=== PATIENT | female | born 1965 | race Two or more races ===

== ENCOUNTER 2019-08-06 22:38 | Emergency (ER) | payer OTHER ==
[~2019-08-06] VITALS: Ht 149.9 cm; Wt 75.2 kg
--- NOTE | 2019-08-06 23:05 | NUR ---
ERP AT BEDSIDE FOR EVAL.
[2019-08-06] MEDS ORDERED: ONDANSETRON 2MG/ML, 2ML ONE (23:14)
[2019-08-06] MEDS ORDERED: MORPHINE SULFATE 4 MG/ML, 1ML ONE (23:14)
[2019-08-06] MEDS ORDERED: KETOROLAC 30 MG/1 ML ONE (23:14)
--- NOTE | 2019-08-06 23:18 | NUR ---
PT TO BATHROOM FOR URINE SAMPLE.
[2019-08-06] MEDS: MORPHINE SULFATE 4 MG/ML, 1ML IVPush PRN (23:28)
[2019-08-06] MEDS ORDERED: KETOROLAC 30 MG/1 ML IVPush ONE (23:30)
[2019-08-06] MEDS ORDERED: ONDANSETRON 2MG/ML, 2ML IVPush ONE (23:30)
--- NOTE | 2019-08-06 23:53 | NUR ---
INSTRUMENTATION FITTER AT BEDSIDE.
[2019-08-06 23:56] LABS: BASOPHILS # (AUTO) 0.06 x10^3/uL (0-0.1); BASOPHILS % (AUTO) 0 % (0-1); EOSINOPHILS # (AUTO) 0.19 x10^3/uL (0-0.4); EOSINOPHILS % (AUTO) 2 % (1-7); LYMPHOCYTES # (AUTO) 2.25 x10^3/uL (1-3.4); LYMPHOCYTES % (AUTO) 18 % (22-44); MD NO; MEAN CORPUSCULAR HEMOGLOBIN 31.5 pg (27.0-34.8); MEAN CORPUSCULAR HGB CONC 33.4 g/dL (32.4-35.8); MEAN CORPUSCULAR VOLUME 94.4 fL (80-100); MEAN PLATELET VOLUME 8.3 fL (7.4-10.4); MONOCYTES # (AUTO) 0.83 x10^3/uL (0.2-0.8); MONOCYTES % (AUTO) 7 % (2-9); NEUTROPHILS % (AUTO) 74 % (42-75); PLATELET COUNT 346 x10^3/uL (130-400); RED BLOOD COUNT 4.39 x10^6/uL (3.82-5.3)
[2019-08-07] LABS: MICROSCOPIC AUTO
[2019-08-07 00:02] LABS: CULTURE INDICATED? YES
[2019-08-07 00:09] LABS: ALBUMIN 3.7 g/dL (3.4-5.0); ANION GAP 8 mmol/L (5-15); CALCIUM 9.2 mg/dL (8.5-10.1); CHLORIDE 106 mmol/L (98-107); CREATININE 0.72 mg/dL (0.55-1.02)
--- NOTE | 2019-08-07 00:23 | NUR ---
RESTING ON GURNEY, DENIES PAIN AT THIS TIME.
--- NOTE | 2019-08-07 01:13 | NUR ---
PT IN CT.
--- NOTE | 2019-08-07 02:11 | NUR ---
RESTING IN [facility], EVEN UNLABORED RESPIRATIONS.
[2019-08-07] MEDS ORDERED: MORPHINE SULFATE 4 MG/ML, 1ML ONE (03:10)
[2019-08-07] MEDS: MORPHINE SULFATE 4 MG/ML, 1ML IVPush PRN (03:16)
[2019-08-07 03:19] VITALS: BP 154/77
== END 2019-08-07 03:32 | disposition home or self-care (01) ==
LOC: ED 08-07 03:14
DX: N13.2 Hydronephrosis with renal and ureteral calculous obstruction (principal); R31.9 Hematuria, unspecified; R11.2 Nausea with vomiting, unspecified; R10.9 Unspecified abdominal pain
CPT/HCPCS: 36415; 74176; 76770; 80048; 81001; 82040; 85025; 87086; 87147; 96374; 96375; 96376; 99285; J1885; J2270; J2405

== ENCOUNTER → 2019-08-12 | Outpatient (CLI) | payer OTHER | END | disposition home or self-care (01) | LOC: RAD 10:43 | PROVIDERS: ATTEND Urology | DX: N20.0 Calculus of kidney (principal) | CPT/HCPCS: 74018 ==

== ENCOUNTER 2019-08-15 10:31 | Day surgery (SDC) | payer OTHER ==
[~2019-08-15] VITALS: Ht 149.9 cm; Wt 77.4 kg
[2019-08-15 10:53] VITALS: BP 146/87
[2019-08-15] MEDS ORDERED: CHLORHEXIDINE 15 ML UDC ONE (11:08)
[2019-08-15] MEDS ORDERED: TAMS-11 PO (11:18)
[2019-08-15] MEDS ORDERED: ZOFRAN ODT PO (11:18)
[2019-08-15] MEDS ORDERED: HYDR-3237 PO (11:18)
[2019-08-15] MEDS ORDERED: LACTATED RINGERS 1,000 ML IV SCH (11:18)
[2019-08-15] MEDS ORDERED: ONDA4TAB7 PO (11:18)
[2019-08-15] MEDS ORDERED: CHLORHEXIDINE 15 ML UDC MM ONE (11:30)
[2019-08-15] MEDS ORDERED: LIDOCAINE-MPF 1%, 2ML INFIL ONE (11:30)
[2019-08-15] MEDS ORDERED: MIDAZOLAM 1 MG/ML, 2ML ONE (12:10)
[2019-08-15] MEDS ORDERED: FENTANYL PF 250 MCG/5ML ONE (12:10)
[2019-08-15] MEDS ORDERED: GLYCOPYRROLATE 0.2MG/1ML, 5ML ONE (12:49)
[2019-08-15] MEDS ORDERED: NEOSTIGMINE 1 MG/ML, 10ML ONE (12:49)
[2019-08-15] MEDS ORDERED: DEXAMETHASONE 4 MG/ML, 1ML ONE ×2 (12:58)
[2019-08-15] MEDS ORDERED: CEFAZOLIN 1,000 MG ONE ×2 (12:59)
[2019-08-15] MEDS ORDERED: OMNIPAQUE 350 MG/ML, 50 ML BOTTLE IV ONE (13:03)
[2019-08-15] MEDS ORDERED: PROPOFOL 10 MG/ML, 20ML ONE (13:14)
[2019-08-15] MEDS ORDERED: KETOROLAC 30 MG/1 ML ONE (13:14)
[2019-08-15] MEDS ORDERED: LIDOCAINE 2%,20 ML JEL.PF.APP MM ONE (13:15)
[2019-08-15] MEDS ORDERED: ONDANSETRON 2MG/ML, 2ML ONE (13:27)
[2019-08-15] MEDS ORDERED: HYDROmorphone 1 MG/ML, 1ML INJ IVPush PRN (13:30)
[2019-08-15] MEDS ORDERED: OXYcodone 5 MG/5 ML ORAL.SOL UDC PO PRN (13:30)
[2019-08-15] MEDS ORDERED: FENTANYL PF 100 MCG/2ML IV PRN (13:30)
[2019-08-15] MEDS ORDERED: PROMETHAZINE 12.5 MG SUPP PR PRN (13:30)
[2019-08-15] MEDS ORDERED: ONDANSETRON 2MG/ML, 2ML IVPush PRN (13:30)
[2019-08-15] MEDS ORDERED: ACETAMINOPHEN 325 MG TABLET PO PRN (13:30)
[2019-08-15] MEDS ORDERED: MEPERIDINE/PF 25MG/0.5ML IVPush PRN (13:30)
[2019-08-15] MEDS ORDERED: hydrALAzine 20 MG/ML, 1ML IV PRN (13:30)
[2019-08-15] MEDS ORDERED: LABETALOL 5MG/ML, 20ML IV PRN (13:30)
[2019-08-15] MEDS ORDERED: OMNIPAQUE 350 MG/ML, 50 ML BOTTLE ONE (13:40)
[2019-08-15] MEDS ORDERED: PHENAZOPYRIDINE 200 MG TABLET ONE (13:51)
[2019-08-15] MEDS ORDERED: PHENAZOPYRIDINE 200 MG TABLET PO ONE (14:00)
[2019-08-15] MEDS ORDERED: HYDROcodone/APAP 7.5-325MG/15ML UDC ONE (14:07)
[2019-08-15] MEDS ORDERED: HYDROcodone/APAP 7.5-325MG/15ML UDC PO ONE (14:30)
== END 2019-08-15 17:00 | disposition home or self-care (01) ==
LOC: OUT 10:31
PROVIDERS: ATTEND Urology
DX: N20.1 Calculus of ureter (principal); Z79.891 Long term (current) use of opiate analgesic; Z79.899 Other long term (current) drug therapy; Z88.5 Allergy status to narcotic agent; Z87.442 Personal history of urinary calculi
CPT/HCPCS: 52356; 74420; C1758; C1769; C2617; J0690; J1100; J1885; J2250; J2405; J2704; J2710; J3010; J7120; Q9967

== ENCOUNTER → 2019-10-15 | Outpatient (CLI) | payer BC, OTHER ==
[~2019-10-15] MED LIST: HYDR-3237 PO; ONDA4TAB7 PO; TAMS-11 PO; ZOFRAN ODT PO
== END | disposition home or self-care (01) ==
LOC: CFH 13:36
PROVIDERS: ATTEND Physician Assistant
DX: N20.0 Calculus of kidney (principal)
CPT/HCPCS: 76770

== ENCOUNTER 2019-10-29 18:13 | Inpatient (IN) | payer BC ==
[~2019-10-29] VITALS: Ht 149.9 cm; Wt 74.7 kg
--- NOTE | 2019-10-29 18:35 | NUR ---
PT AMB TO BR WITH STEADY GAIT.
--- NOTE | 2019-10-29 18:50 | NUR ---
URINE COLLECTED AND UA SENT.
--- NOTE | 2019-10-29 18:50 | NUR ---
FIRST CONTACT WITH PT. PT C/O LEFT FLANK PAIN X6 DAYS WITH URINALY FREQUENCY. HAS HX KIDNEY STONES AND LITHOTRIPSY, TAKES FLOMAX. PAIN WORSEN TODAY. PT'S AOX4. RESPS EVEN AND UNLABORED. BP/SPO2 MONITORS IN PLACE. CALL LIGHT WITHIN REACH. EDMD AT BEDSIDE TO EVALUATE AT THIS TIME.
--- NOTE | 2019-10-29 18:52 | NUR ---
REPORT GIVEN TO WILFREDO ARVIZU.
[2019-10-29] MEDS ORDERED: KETOROLAC 30 MG/1 ML IM ONE (19:00)
--- NOTE | 2019-10-29 19:05 | NUR ---
PT BACK FROM CT, MEDICATED PER MAY, PT REPORTS LEFT SIDED ABDOMINAL PAIN RADIATING INTO BACK, PROVIDED WITH WARM BLANKETS, VSS, NAD NOTED, SPOUSE AT BEDSIDE, NO FURTHER REQUESTS AT THIS TIME
[2019-10-29 19:08] LABS: MICROSCOPIC AUTO
[2019-10-29] MEDS ORDERED: ONDANSETRON 2MG/ML, 2ML ONE (20:17)
[2019-10-29] MEDS ORDERED: ONDANSETRON 2MG/ML, 2ML IVPush ONE (20:30)
[2019-10-29] MEDS ORDERED: MORPHINE SULFATE 4 MG/ML, 1ML IVPush PRN (20:30)
[2019-10-29 20:31] LABS: BASOPHILS # (AUTO) 0.05 x10^3/uL (0-0.1); BASOPHILS % (AUTO) 1 % (0-1); EOSINOPHILS # (AUTO) 0.26 x10^3/uL (0-0.4); EOSINOPHILS % (AUTO) 3 % (1-7); LYMPHOCYTES % (AUTO) 38 % (22-44); MD NO; MEAN CORPUSCULAR HEMOGLOBIN 31.6 pg (27.0-34.8); MEAN CORPUSCULAR HGB CONC 32.8 g/dL (32.4-35.8); MEAN CORPUSCULAR VOLUME 96.3 fL (80-100); MEAN PLATELET VOLUME 7.9 fL (7.4-10.4); MONOCYTES # (AUTO) 0.57 x10^3/uL (0.2-0.8); MONOCYTES % (AUTO) 6 % (2-9); NEUTROPHILS # (AUTO) 4.78 x10^3/uL (1.8-6.8); NEUTROPHILS % (AUTO) 53 % (42-75); PLATELET COUNT 306 x10^3/uL (130-400); RED BLOOD COUNT 4.29 x10^6/uL (3.82-5.3); RED CELL DISTRIBUTION WIDTH 13.7 % (9.6-15.2)
[2019-10-29 20:42] LABS: ALBUMIN 3.6 g/dL (3.4-5.0); ANION GAP 7 mmol/L (5-15); CALCIUM 8.4 mg/dL (8.5-10.1); CHLORIDE 111 mmol/L (98-107); CREATININE 0.54 mg/dL (0.55-1.02)
--- NOTE | 2019-10-29 21:41 | NUR ---
REPORT TO NOLBERTO CARLOS. FLOOR READY FOR PT. TRANSPORT.
[2019-10-29] MEDS ORDERED: ONDANSETRON 2MG/ML, 2ML IVPush PRN (22:30)
[2019-10-29] MEDS ORDERED: BISACODYL 10 MG SUPP PR PRN (22:30)
[2019-10-29] MEDS ORDERED: morphine SULFATE 10 MG/ML, 1ML IVPush PRN (22:30)
[2019-10-29] MEDS: CEFTRIAXONE PMX 1GM/50ML 50 ML IV SCH (22:54)
[2019-10-29] MEDS: POTASSIUM CHLORIDE 20 MEQ in SODIUM CHLORIDE 0.45% 1,000 ML IV SCH (22:54)
[2019-10-29 23:02] VITALS: BP 159/90
[2019-10-30 01:49] VITALS: BP 114/69
[2019-10-30 05:43] LABS: CALCIUM 8.2 mg/dL (8.5-10.1); CHLORIDE 110 mmol/L (98-107)
[2019-10-30 05:46] LABS: ANION GAP 6 mmol/L (5-15); CREATININE 0.57 mg/dL (0.55-1.02)
[2019-10-30 06:52] VITALS: BP 136/95
[2019-10-30] MEDS: KETOROLAC 30 MG/1 ML IV PRN (07:57)
[2019-10-30] MEDS: POTASSIUM CHLORIDE 20 MEQ in SODIUM CHLORIDE 0.45% 1,000 ML IV SCH ×2 (07:57→22:17)
[2019-10-30] MEDS ORDERED: CHLORHEXIDINE 15 ML UDC MM ONE (12:30)
[2019-10-30] MEDS ORDERED: MIDAZOLAM 1 MG/ML, 2ML ONE (12:46)
[2019-10-30] MEDS ORDERED: FENTANYL PF 100 MCG/2ML ONE (12:50)
[2019-10-30] MEDS ORDERED: LABETALOL 5MG/ML, 20ML IV PRN (13:00)
[2019-10-30] MEDS ORDERED: HYDROmorphone 1 MG/ML, 1ML INJ IVPush PRN (13:00)
[2019-10-30] MEDS ORDERED: PROMETHAZINE 25 MG/ML, 1ML IVPush PRN (13:00)
[2019-10-30] MEDS ORDERED: hydrALAzine 20 MG/ML, 1ML IV PRN (13:00)
[2019-10-30] MEDS ORDERED: FENTANYL PF 100 MCG/2ML IV PRN (13:00)
[2019-10-30] MEDS ORDERED: OXYcodone 5 MG/5 ML ORAL.SOL UDC PO PRN (13:00)
[2019-10-30] MEDS ORDERED: DIPHENHYDRAMINE 50 MG/ML, 1ML IVPush PRN (13:00)
[2019-10-30] MEDS ORDERED: HALOPERIDOL 5 MG/ML IV PRN (13:00)
[2019-10-30] MEDS ORDERED: MEPERIDINE/PF 25MG/0.5ML IVPush PRN (13:00)
[2019-10-30] MEDS ORDERED: DEXAMETHASONE 4 MG/ML, 1ML ONE (13:45)
[2019-10-30] MEDS ORDERED: PROPOFOL 10 MG/ML, 20ML ONE (13:45)
[2019-10-30] MEDS ORDERED: ONDANSETRON 2MG/ML, 2ML ONE (13:45)
[2019-10-30] MEDS ORDERED: CEFAZOLIN 1,000 MG ONE (13:45)
[2019-10-30] MEDS ORDERED: ACETAMINOPHEN 650 MG/20.3 ML UDC ONE (14:14)
[2019-10-30] MEDS: ACETAMINOPHEN 325 MG TABLET PO PRN ×2 (14:16→18:26)
[2019-10-30 19:14] VITALS: BP 147/79
[2019-10-30] MEDS: CEFTRIAXONE PMX 1GM/50ML 50 ML IV SCH (22:17)
[2019-10-30 23:45] VITALS: BP 127/78
[2019-10-31] MEDS: KETOROLAC 30 MG/1 ML IV PRN ×2 (02:52→09:39)
[2019-10-31 03:32] VITALS: BP 121/77
[2019-10-31 05:54] LABS: BASOPHILS # (AUTO) 0.03 x10^3/uL (0-0.1); BASOPHILS % (AUTO) 0 % (0-1); EOSINOPHILS # (AUTO) 0.01 x10^3/uL (0-0.4); EOSINOPHILS % (AUTO) 0 % (1-7); LYMPHOCYTES # (AUTO) 1.86 x10^3/uL (1-3.4); LYMPHOCYTES % (AUTO) 15 % (22-44); MD NO; MEAN CORPUSCULAR HEMOGLOBIN 32.1 pg (27.0-34.8); MEAN CORPUSCULAR HGB CONC 33.6 g/dL (32.4-35.8); MEAN CORPUSCULAR VOLUME 95.5 fL (80-100); MEAN PLATELET VOLUME 8.2 fL (7.4-10.4); MONOCYTES # (AUTO) 0.67 x10^3/uL (0.2-0.8); MONOCYTES % (AUTO) 5 % (2-9); NEUTROPHILS # (AUTO) 9.81 x10^3/uL (1.8-6.8); NEUTROPHILS % (AUTO) 79 % (42-75); PLATELET COUNT 298 x10^3/uL (130-400); RED BLOOD COUNT 4.11 x10^6/uL (3.82-5.3); RED CELL DISTRIBUTION WIDTH 13.9 % (9.6-15.2)
[2019-10-31 05:55] LABS: ANION GAP 7 mmol/L (5-15); CALCIUM 8.5 mg/dL (8.5-10.1); CHLORIDE 110 mmol/L (98-107); CREATININE 0.63 mg/dL (0.55-1.02)
[2019-10-31 06:19] VITALS: BP 121/76
[2019-10-31] MEDS: POTASSIUM CHLORIDE 20 MEQ in SODIUM CHLORIDE 0.45% 1,000 ML IV SCH (10:07)
[2019-10-31 12:44] LABS: MICROSCOPIC INDICATED
[2019-10-31 14:48] VITALS: BP 118/74
[2019-10-31] MEDS ORDERED: PHEN100T90 PO (15:46)
[2019-10-31 17:47] VITALS: BP 126/77
== END 2019-10-31 17:55 | disposition home or self-care (01) | DRG 661 ==
LOC: ED 21:22 → EDIP 21:38 → 4NE 22:25
PROVIDERS: ADMIT Internal Medicine; ATTEND Internal Medicine
PROC: 0T778DZ Dilation of Left Ureter with Intraluminal Device, Via Natural or Artificial Opening Endoscopic (ICD-10-PCS; 2019-10-30)
PROC: BT1F1ZZ Fluoroscopy of Left Kidney, Ureter and Bladder using Low Osmolar Contrast (ICD-10-PCS; 2019-10-30)
PROC: 0TC78ZZ Extirpation of Matter from Left Ureter, Via Natural or Artificial Opening Endoscopic (ICD-10-PCS; principal; 2019-10-30 12:30)
DX: N13.6 Pyonephrosis (principal); E87.6 Hypokalemia; Z87.442 Personal history of urinary calculi
CPT/HCPCS: 36415; 74176; 74420; 80048; 81001; 82040; 82360; 85025; 87086; 87635; 88300; G0378; J0690; J0696; J1100; J1885; J2250; J2405; J2704; J3010; J3480; C2617

== ENCOUNTER 2019-11-04 22:53 | Emergency (ER) | payer BC ==
[~2019-11-04] VITALS: Ht 149.9 cm; Wt 75.1 kg
[~2019-11-04 22:53] MED LIST changes: +PHEN100T90 PO
[2019-11-05] MEDS ORDERED: ONDANSETRON 2MG/ML, 2ML IVPush ONE
[2019-11-05] MEDS ORDERED: KETOROLAC 30 MG/1 ML IVPush ONE
[2019-11-05] MEDS ORDERED: KETOROLAC 30 MG/1 ML ONE (00:08)
--- NOTE | 2019-11-05 00:25 | NUR ---
PT TO IMAGING.
[2019-11-05 00:30] LABS: BASOPHILS # (AUTO) 0.06 x10^3/uL (0-0.1); BASOPHILS % (AUTO) 0 % (0-1); EOSINOPHILS # (AUTO) 0.21 x10^3/uL (0-0.4); EOSINOPHILS % (AUTO) 2 % (1-7); LYMPHOCYTES % (AUTO) 16 % (22-44); MD NO; MEAN CORPUSCULAR HEMOGLOBIN 31.6 pg (27.0-34.8); MEAN CORPUSCULAR HGB CONC 33.2 g/dL (32.4-35.8); MEAN CORPUSCULAR VOLUME 95.1 fL (80-100); MEAN PLATELET VOLUME 8.1 fL (7.4-10.4); MONOCYTES # (AUTO) 0.85 x10^3/uL (0.2-0.8); MONOCYTES % (AUTO) 6 % (2-9); NEUTROPHILS # (AUTO) 10.65 x10^3/uL (1.8-6.8); NEUTROPHILS % (AUTO) 76 % (42-75); PLATELET COUNT 345 x10^3/uL (130-400); RED BLOOD COUNT 4.33 x10^6/uL (3.82-5.3)
[2019-11-05 00:39] LABS: MICROSCOPIC INDICATED
[2019-11-05 00:44] LABS: ALANINE AMINOTRANSFERASE 22 U/L (12-78); ALBUMIN 3.5 g/dL (3.4-5.0); ANION GAP 7 mmol/L (5-15); CALCIUM 8.8 mg/dL (8.5-10.1); CHLORIDE 108 mmol/L (98-107); CREATININE 0.73 mg/dL (0.55-1.02)
[2019-11-05 00:46] LABS: ALKALINE PHOSPHATASE 118 U/L (45-117); BILIRUBIN,TOTAL 0.3 mg/dL (0.2-1.0); TOTAL PROTEIN 7.7 g/dL (6.4-8.2)
--- NOTE | 2019-11-05 00:55 | NUR ---
THIS PT CAME FROM HOME BECAUSE SHE HAD LEFT ABD PAIN THAT STARTED A COUPLE DAYS AGO. SHE ALSO HAS BLOODY URINE THAT STARTED AT 1400. PT JUST HAD A STENT PLACED LAST MONDAY. PT HAS A HX OF RECURRING KIDNEY STONES. PT CONNECT TO BP AND O2 MONITORS. BED RAILS UP X2, CALL LIGHT IN REACH.
--- NOTE | 2019-11-05 01:25 | NUR ---
ERP BACK TO BEDSIDE TO UPDATE PT ON POC.
[2019-11-05 01:41] VITALS: BP 106/54
== END 2019-11-05 01:48 | disposition home or self-care (01) ==
LOC: ED 23:36
DX: N13.2 Hydronephrosis with renal and ureteral calculous obstruction (principal)
CPT/HCPCS: 36415; 74176; 80053; 81001; 83690; 85025; 87086; 96374; 96375; 99284; J1885; J2405

== ENCOUNTER → 2019-11-19 | Outpatient (CLI) | payer BC | END | disposition home or self-care (01) | LOC: CFH 14:45 | PROVIDERS: ATTEND Physician Assistant | DX: N20.2 Calculus of kidney with calculus of ureter (principal) | CPT/HCPCS: 74018; 76770 ==

== ENCOUNTER → 2020-07-14 | Outpatient (CLI) | payer BC | END | disposition home or self-care (01) | LOC: RAD 15:48 | PROVIDERS: ATTEND Emergency Medicine | DX: N20.0 Calculus of kidney (principal); R00.2 Palpitations; N23 Unspecified renal colic | CPT/HCPCS: 76770 ==